=== PATIENT | female | born 1990 | race Caucasian/White ===

== ENCOUNTER 2021-07-30 10:18 | Emergency (ER) | payer BC ==
--- OUTSIDE RECORDS SUMMARY | 2021-07-30 10:21 | XMS REPORT | Continuity of Care Document ---
:1990 Author Organization [facility] t Address [address] [place] [address] Care Team Providers Name Role Phone Pcp, Does Not Have A Primary Care Physician Ramona Isaac Attending Clinician Unavailable Doctor Unassigned, Name Attending Clinician Unavailable Leandra Hanson MD Attending Clinician MARCY Attending Clinician Unavailable LEANDRA HANSON Attending Clinician Unavailable Ramona Isaac Admitting Clinician Unavailable Physician, Primary or Family Admitting Clinician Unavailabl e Payers Payer Name Policy Type Policy Number Effective Date Expiration Date S ource Problems Condition Condition Condition Status Onset Resolution Last Treating Co mments Source Name Details Category Date Date Treatment Clinician Date Subchorion Subchorion Disease Active U nivers ic ic 9-10 ity of hematoma hematoma 00:00: [place] in first in first 00 Medica l trimester, trimester, Br anch single or single or unspecifie unspecifie d fetus d fetus Allergies, Adverse Reactions, Alerts Allergy Allergy Status Severity Reaction(s) Onset Inactive Treating Comm ents Source Name Type Date Date Clinician No Known DA Active U [facility] Allergie 4-21 [facility] [place] Sulfa Propensi Active Rash Univers (Sulfona ty to 8-20 ity of mide adverse 00:00: [place] Antibiot reaction 00 Medica l ics) s Branch SULFA Drug Active High Rash Univers (SULFONA Class 8-20 ity of MIDE 00:00: [place] ANTIBIOT 00 Medical ICS) Branch NO KNOWN Drug Active Univers ALLERGIE Class ity of S [facility] Social History Social Habit Start Date Stop Date Quantity Comments Source ASSERTION 2020-11-06 University of 00:00:00 [facility] Exposure to Not sure University SARS-CoV-2 [facility] (event) Branch Alcohol intake 2021-01-08 2021-01-08 Current drinker Unive rsity of 00:00:00 00:00:00 of alcohol [facility] (finding) Branch Tobacco use and 2020-11-21 2020-11-21 Never used Universit y of exposure 00:00:00 00:00:00 [facility] Sex Ass[birth year] At [birth year] Universit y of 00:00:00 00:00:00 [facility] Smoking Status Start Date Stop Date Source Never smoker [facility] Medications Ordered Filled Start Stop Current Ordering Indication Dosage Frequency Signature Comments Components Source Medication Medication Date Date Medication? Clinician (SIG) Name Name ferrous Yes [id number] 325mg Take 1 Un ramin sulfate 1-11 tablet by ity of (IRON, 00:00: mouth 2 [place] FERROUS 00 (two) Medical SULFATE,) times Branch 325 mg (65 daily. mg iron) tablet ferrous Yes [id number] 325mg Take 1 Un ramin sulfate 1-11 tablet by ity of (IRON, 00:00: mouth 2 [place] FERROUS 00 (two) Medical SULFATE,) times Branch 325 mg (65 daily. mg iron) tablet ferrous 2020-04 Yes [id number] 325mg Take 1 Un ramin sulfate 0-12 tablet by ity of (IRON, 00:00: mouth 2 [place] FERROUS 00 (two) Medical SULFATE,) times Branch 325 mg (65 daily. mg iron) tablet docusate 2020-04 Yes [id number] 100mg Take 1 U nivers (COLACE) 0-12 capsule by ity o f 100 mg 00:00: mouth [place] capsule 00 daily. Medical Branch ferrous 2020-04 Yes [id number] 325mg Take 1 Un ramin sulfate 0-12 tablet by ity of (IRON, 00:00: mouth 2 [place] FERROUS 00 (two) Medical SULFATE,) times Branch 325 mg (65 daily. mg iron) tablet docusate 2020-04 Yes [id number] 100mg Take 1 U nivers (COLACE) 0-12 capsule by ity o f 100 mg 00:00: mouth [place] capsule 00 daily. Medical Branch ferrous 2020-04 Yes [id number] 325mg Take 1 Un ramin sulfate 0-12 tablet by ity of (IRON, 00:00: mouth 2 [place] FERROUS 00 (two) Medical SULFATE,) times Branch 325 mg (65 daily. mg iron) tablet docusate 2020-04 Yes [id number] 100mg Take 1 U nivers (COLACE) 0-12 capsule by ity o f 100 mg 00:00: mouth [place] capsule 00 daily. Medical Branch docusate 2020-04 Yes [id number] 100mg Take 1 U nivers (COLACE) 0-12 capsule by ity o f 100 mg 00:00: mouth [place] capsule 00 daily. Medical Branch docusate 2020-04 Yes [id number] 100mg Take 1 U nivers (COLACE) 0-12 capsule by ity o f 100 mg 00:00: mouth [place] capsule 00 daily. Medical Branch docusate 2020-04 Yes [id number] 100mg Take 1 U nivers (COLACE) 0-12 capsule by ity o f 100 mg 00:00: mouth [place] capsule 00 daily. Medical Branch ferrous 2020-04- No [id number] 325mg Take 1 U nivers sulfate 0-12 - tablet by ity of (IRON, 00:00: 00:00 mouth 2 [place] FERROUS 00 :00 (two) Medical SULFATE,) times Branch 325 mg (65 daily. mg iron) tablet PNV Yes Take by Univers no.95/bambi 8-20 mouth. ity of us 09:32: [place] fum/folic 24 Medical ac Branch ( ORAL) PNV 0 Yes Take by Univers no.95/bambi 8-20 mouth. ity of us 09:32: [place] fum/folic 24 Medical ac Branch ( ORAL) PNV 0 Yes Take by Univers no.95/bambi 8-20 mouth. ity of us 09:32: [place] fum/folic 24 Medical ac Branch ( ORAL) PNV 0 Yes Take by Univers no.95/bambi 8-20 mouth. ity of us 09:32: [place] fum/folic 24 Medical ac Branch ( ORAL) PNV 2020-0 Yes Take by Univers no.95/bambi 8-20 mouth. ity of us 09:32: [place] fum/folic 24 Medical ac Branch ( ORAL) PNV 2020-0 Yes Take by Univers no.95/bambi 8-20 mouth. ity of us 09:32: [place] fum/folic 24 Medical ac Branch ( ORAL) Immunizations Ordered Filled Immunization Date Status Comments [facility] Immunization Name Name SARS-COV-2 COVID-19 2020-07-02 Completed Unive rsity of MODERNA VACCINE 00:00:00 [place] Med ical Branch SARS-COV-2 COVID-19 2020-07-02 Completed Unive rsity of MODERNA VACCINE 00:00:00 [place] Med ical Branch SARS-COV-2 COVID-19 2020-07-02 Completed Unive rsity of MODERNA VACCINE 00:00:00 [place] Med ical Branch SARS-COV-2 COVID-19 2020-07-02 Completed Unive rsity of MODERNA VACCINE 00:00:00 [place] Med ical Branch SARS-COV-2 COVID-19 2020-07-02 Completed Unive rsity of MODERNA VACCINE 00:00:00 [place] Med ical Branch SARS-COV-2 COVID-19 2020-07-02 Completed Unive rsity of MODERNA VACCINE 00:00:00 [place] [facility] ical Branch SARS-COV-2 COVID-19 2020-06-04 Completed Unive rsity of MODERNA VACCINE 00:00:00 [place] Med ical Branch SARS-COV-2 COVID-19 2020-06-04 Completed Unive rsity of MODERNA VACCINE 00:00:00 [place] Med ical Branch SARS-COV-2 COVID-19 2020-06-04 Completed Unive rsity of MODERNA VACCINE 00:00:00 [place] Med ical Branch SARS-COV-2 COVID-19 2020-06-04 Completed Unive rsity of MODERNA VACCINE 00:00:00 [place] Med ical Branch SARS-COV-2 COVID-19 2020-06-04 Completed Unive rsity of MODERNA VACCINE 00:00:00 [facility] ical Branch SARS-COV-2 COVID-19 2020-06-04 Completed Unive rsity of MODERNA VACCINE 00:00:00 [facility] ical Branch Procedures Procedure Date / Time Performing Clinician Source Performed [id number] 2021-07-24 00:00:00 [facility] [id number] 2021-07-24 00:00:00 [facility] [id number] 2021-07-24 00:00:00 [facility] EXTERNAL PROVIDER 2021-04-22 06:01:00 Doctor Unassigned, No [facility] RECORDS Name Medical Branch AUTHORIZATION TO RELEASE 2021-02-25 06:01:00 [facility] Name [facility] SCANNED LAB RESULTS 2021-01-13 05:01:00 [facility] En[facility]ters Start End Encounter Admission Attending Care Care Encounter Source Date/Time Date/Time Type Type Clinicians Facility Department ID 2021-07-24 2021-07-26 Inpatient EM KEREN Isaac OBPP [id number] [facility] 01:08:00 17:01:00 Iris [id number] [facility] 2021-07-24 2021-07-24 Inpatient EM GE Isaac OBPP [id number] [facility] 01:08:00 01:08:00 Iris 97 [facility] 2021-07-23 2021-07-23 Emergency EM GE Isaac LANA [id number] [facility] 22:22:00 22:22:00 Iris [id number] [facility] [place] 2021-05-01 2021-05-01 Emergency EM GE Isaac LANA [id number] [facility] 12:09:00 14:33:00 Iris [id number] [facility] [place] 2021-05-01 2021-05-01 Emergency EM GE Isaac [facility] [id number] [facility] 12:09:00 14:33:00 Iris 37 [facility] 2021-04-22 2021-04-22 Orders Doctor THOMPSON [id number] [facility] 00:00:00 00:00:00 Only Unassigned, BLANCO [id number] ity of [facility] [id number] Ian as [phone] [address] 2021-04-14 2021-04-14 Refill Omar Hanson [facility] [id number] Univers 00:00:00 00:00:00 [place] [id number] i ty of [facility] [id number] [place] [phone] Ia dical NAL [address] [place] [address] 2021-04-13 2021-04-13 [facility] [id number] Univers 00:00:00 00:00:00 [place] [id number] i ty of [facility] [id number] [place] [phone] Ia dic[address] 2021-02-25 2021-02-25 Orders Doctor THOMPSON [id number] Univers 00:00:00 00:00:00 Only Unassigned, [place] [id number] ity of [place] [facility] [id number] Ian as [phone] [address] 2021-02-12 2021-02-12 Outpatient R MARCY [facility] [id number] Univers 16:00:00 16:00:[id number] [facility] 2021-02-12 2021-02-12 [facility] [id number] Univers 16:00:00 16:00:00 ROSALIA ity [facility] 2021-01-26 2021-01-26 Telephone Omar Hanson [facility] [id number] Univers 00:00:00 00:00:00 Cam [place] [id number] [place] [id number] [place] Profess[place] [phone] Ia dicwa nal [address] [place] [address] 2021-01-13 2021-01-13 Outpatient R [facility] [id number] Univers 08:30:00 08:30:00 [id number] ity [facility] 2021-01-13 2021-01-13 Outpatient R [facility] [id number] Univers 08:30:00 08:30:00 ity [facility] 2021-01-13 2021-01-13 Orders Doctor DONNA [id number] Univers 00:00:00 00:00:00 Only Unassigned, [place]AN[place] [id number] [facility] [id number] Ian as [phone] [address] 2021-01-08 2021-01-08 Outpatient R OMAR HANSON [facility] [id number] Univers 16:15:00 16:15:00 [id number] ity [facility] 2021-01-08 2021-01-08 Outpatient R HANSON [facility] [id number] Univers 16:15:00 16:15:00 ity [facility] 2020-12-12 2020-12-12 Outpatient R HANSON [facility] [id number] Univers 08:30:00 08:30:00 [id number] ity [facility] 2020-12-12 2020-12-12 Outpatient R MARGIE [facility] [id number] Univers 08:30:00 08:30:00 ity [facility] 2020-12-05 2020-12-05 Outpatient R MARGIE [facility] [id number] Univers 00:00:00 00:00:00 [id number] ity [facility] 2020-12-05 2020-12-05 Outpatient R MARGIE [facility] [id number] Univers 00:00:00 00:00:00 ity [facility] 2020-11-28 2020-11-28 Outpatient R [facility] [id number] Univers 11:30:00 11:30:00 [id number] ity [facility] 2020-11-28 2020-11-28 Outpatient R MARGIE [facility] [id number] Univers 11:30:00 11:30:00 ity [facility] 2020-11-25 2020-11-25 Outpatient R [facility] [id number] Univers 16:30:00 16:30:00 [id number] [facility] 2020-11-25 2020-11-25 Outpatient R OMAR HANSON [facility] [id number] Univers 16:30:00 16:30:00 [facility] 2020-11-24 2020-11-24 Outpatient R [facility] [id number] Univers 10:00:00 10:00:00 [id number] [facility] 2020-11-24 2020-11-24 Outpatient R OMAR HANSON [facility] [id number] Univers 10:00:00 10:00:00 [facility] 2020-11-21 2020-11-21 Outpatient R [facility] [id number] Univers 14:00:00 14:00:00 [id number] [facility] 2020-11-21 2020-11-21 Outpatient R OMAR HANSON [facility] [id number] Univers 09:00:00 09:00:00 [facility] Results Test Description Test Time Test Comments Results Result Comments Source AG HEPATITIS B SURFACE 2021-07-24 03:17:00 Test Item Value Reference Range Interpretation Comme nts AG HEPATITIS B SURFACE (test code = HBSAG) NONREACTIVE NONREACTIVE AB HEPATITIS C [id number] 03:17:00 Test Item Value Reference Range Interpretation Comments AB HEPATITIS C (test code = NONREACTIVE NONREACTIVE HCVAB) SIGNAL TO CUTOFF (test code = 0.08 <0.80 N CUTOFF) AB [id number] 03:17:00 Test Item Value Reference Range Interpretation Comments AB TREPONEMA (test code = TREPAB) NONREACTIVE NONREACTIVE AB HIV 1 03:17:00 Test Item Value Reference Range Interpretation Comments AB HIV 1 2 (test NONREACTIVE NONREACTIVE [id number] 4th Gen HIV Ag/Ab Combo Screen CBC W/AUTO [id number] 01:50:00 Test Item Value Reference Range Interpretation Comments WHITE BLOOD CELL (test code = WBC) 9.4 K/mm3 6.5-12.3 N RED BLOOD CELL (test code = RBC) 3.98 M/mm3 3.51-4.69 N HEMOGLOBIN (test code = HGB) 11.9 g/dL 10.1-13.8 N HEMATOCRIT (test code = HCT) 37.0 % 32.5-41.8 N MEAN CELL VOLUME (test code = MCV) 93.0 fL 84.6-96.6 N MEAN CELL HGB (test code = MCH) 29.9 pg 27.3-33.9 N MEAN CELL HGB CONCETRATION (test 32.2 gm/dL 32.0-34.2 N code = MCHC) RED CELL DISTRIBUTION WIDTH (test 14.1 % 12.2-16.3 N code = RDW) PLATELET COUNT (test code = PLT) 146 K/mm3 134-363 N IMMATURE PLATELET FRACTION (test 6.0 % 0.0-10.8 N code = IPF) MEAN PLATELET VOLUME (test code = 10.5 fL 9.2-12.7 N MPV) NEUTROPHIL % (test code = NT%) 84.8 % 57.9-77.3 H LYMPHOCYTE % (test code = LY%) 9.0 % 14.5-29.7 L MONOCYTE % (test code = MO%) 5.0 % 3.6-10.2 N EOSINOPHIL % (test code = EO%) 0.3 % 0.0-3.0 N BASOPHIL % (test code = BA%) 0.3 % 0.1-0.9 N NEUTROPHIL # (test code = NT#) 7.9 K/mm3 LYMPHOCYTE # (test code = LY#) 0.8 K/mm3 MONOCYTE # (test code = MO#) 0.5 K/mm3 EOSINOPHIL # (test code = EO#) 0.03 K/mm3 BASOPHIL # (test code = BA#) 0.0 K/mm3 RBC MORPHOLOGY REQUIRED (test code NORMAL NORMAL = RBCM) PLATELET MORPHOLOGY REQUIRED (test NORMAL NORMAL code = PLTMR) COVID 19 Asymptomatic IH [id number] 01:36:00 Test Item Value Reference Range Interpretation Comments COVID 19 NEGATIVE NEGATIVE This test has b een Asymptomatic IH AG authorize d only for the (test code = detection ofpro teins from COVNONPUIAG) SARS-CoV-2, not for any other viruses orpathogens. N egative results should be treated as presumptive andconfirmed wi th a molecular assay , if necessary for patientmanageme nt. Negative result s do not rule out COVID- 19 andshould not b e used as the sole basis for treatment orpat ient management deci sions, including infec tion controldecision s. Negative result s should be considered i n thecontext of a patient's recent exposure s, history and thepresence of clinical signs and symptoms consis tent withCOVID-19. T his test has not been FD A cleared or approved; th e test hasbeen authori verna by FDA under an Emerge ncy Use Authorization(E UA) for use by laborato mario certified under the CLIA thatmeet the re quirements to perform mode rate, high or waivedcomple xity tests. This sebastián t is authorized for use at thePoint of Car e (POC), i.e., in patien t care settingsoperati ng under a CLIA Certificat e of Waiver, Certifi mickey ofCompliance, o r Certificate of Accreditation. This test is only authori zed for the duration of thedeclaration that circumstances e xist justifying theauthorizatio n of emergency use o f in vitro diagnostic test sfor detection and/o r diagnosis of CO VID-19 under Dkicwzd46 4(b)(1) of the Act, 21 U.S .C. 360bbb-3(b)(1), unless theauthorizatio n is terminated or r evoked sooner.
[2021-07-30] MEDS ORDERED: NA CHLORIDE 0.9% 1,000 ML ONE (10:51)
[2021-07-30 11:07] LABS: Absolute Lymphocytes (CBC) 0.5 K/uL (0.7-4.9); Hematocrit 48.7 % (36.0-45.0); Lymphocytes % 12.5 % (15.3-44.8); MPV 7.8 fL (7.6-11.3); RBC Red Blood Cell Count 5.49 M/uL (3.86-4.86)
[2021-07-30 11:26] LABS: BUN Blood Urea Nitrogen 6 mg/dL (7-18); Bicarbonate 24 mmol/L (21-32); Glucose Level 70 mg/dL (74-106); HCG, Quantitative 231 mIU/mL (1-3); Potassium 3.3 mmol/L (3.5-5.1); Sodium Level 142 mmol/L (136-145)
--- NOTE | 2021-07-30 12:16 | RAD REPORT ---
EXAM DESCRIPTION: CT - Abdomen Pelvis W Contrast - 07/30/2021 12:00 pm CLINICAL HISTORY: Abdominal pain/right lower quadrant pain COMPARISON: none. TECHNIQUE: Computed axial tomography of the abdomen pelvis was obtained. 100 cc Isovue-300 was admin istered intravenously. Oral contrast was not requested which limits evaluation of bowel and appendix. All CT scans are performed using dose optimization technique as appropriate and may include automated exposure control or mA/KV adjustment according to patient size. FINDINGS: Periportal hepatic edema. This is a nonspecific finding but can be associated with inflamm ation. Mild fatty liver The spleen, pancreas, adrenals kidneys unremarkable The uterus is enlarged. There is no evidence of diverticulitis. Trace amount of ascites. Suboptimal evaluation of the appendix. IMPRESSION: uterus. Small amount of air within the vagina, cervix and uterus. This may be normal change or indicate infection and should be correlated clinically. Suboptimal evaluation of the appendix. If patient has clinical symptoms to suggest appendicitis then CT scan with oral contrast and opacification of the terminal ileum/cecum would be recommended
--- NOTE | 2021-07-30 12:26 | ER ---
Nurse's Notes [facility] Name: Kapil Moncada Age: 31 yrs Sex: Female : 1990 Arrival Date: 07/30/2021 Time: 10:19 Bed 13 Private MD: Diagnosis: Other specified abnormal uterine and vaginal bleeding Presentation: 07/30 10:27 Chief complaint: Patient states: Had vaginal delivery 07/24. Vaginal bleeding since, got ll1 more severe the past 24 hours. Feels weak and tired. No fever. Coronavirus screen: Vaccine status: Patient reports receiving the 2nd dose of the covid vaccine. Client denies travel out of the [place] in the last 14 days. At this time, the client does not indicate any symptoms associated with coronavirus-19. Ebola Screen: Patient denies travel to an Ebola-affected area in the 21 days before illness onset. Initial Sepsis Screen: Does the patient meet any 2 criteria? No. Patient's initial sepsis screen is negative. Does the patient have a suspected source of infection? Yes: Acute abdominal pain. Risk Assessment: Do you want to hurt yourself or someone else? Patient reports no desire to harm self or others. Onset of symptoms was July 29, 2021. 10:27 Method Of Arrival: Ambulatory ll1 10:27 Acuity: ABDULAZIZ 3 ll1 Triage Assessment: 10:29 General: Appears uncomfortable, Behavior is cooperative, appropriate for age. Pain: ll1 Complains of pain in head Pain currently is 3 out of 10 on a pain scale. Quality of pain is described as aching. Neuro: Reports headache weakness. : Reports vaginal bleeding that is heavy flow. 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 - Social history:: Smoking status: Patient denies any tobacco usage or history of. Patient/guardian denies using alcohol, street drugs, The patient lives with family. - Family history:: not pertinent. Screenin:34 Abuse screen: Denies threats or abuse. Denies injuries from another. Nutritional jg9 screening: No deficits noted. Tuberculosis screening: No symptoms or risk factors identified. Fall Risk None identified. Assessment: 10:34 : Reports vaginal bleeding that is heavy flow patient reports she gave on jg9 Tuesday and since her bleeding has started to increase and become more heavy since. 11:47 Reassessment: No changes from previously documented assessment. Patient and/or family jg9 updated on plan of care and expected duration. Pain level reassessed. Patient states symptoms have not improved. Vital Signs: 10:27 BP 128 / 82; Pulse 64; Resp 16; Temp 99.5; Pulse Ox 100% ; Weight 61.23 kg; Height 5 ll1 ft. 3 in. (160.02 cm); Pain 3/10; 11:00 BP 142 / 73; Pulse 60; Resp 14 S; Pulse Ox 100% ; jg9 11:30 BP 144 / 70; Pulse 58; Resp 14 S; Pulse Ox 99% on R/A; jg9 12:30 BP 145 / 76; Pulse 52; Resp 17 S; Pulse Ox 99% on R/A; jg9 10:27 Body Mass Index 23.91 (61.23 kg, 160.02 cm) ll1 ED Course: 10:19 Patient arrived in ED. rg4 10:21 Fabiola Lawson, ETHAN is Primary Nurse. jg9 10:23 Munir Garcia MD is Attending Physician. ma2 10:26 Arm band placed on Patient placed in an exam room, on a stretcher. ll1 10:29 Triage completed. ll1 10:33 Inserted saline lock: 20 gauge in right antecubital area, using aseptic technique. zm Blood collected. 10:35 Patient has correct armband on for positive identification. Bed in low position. Call jg9 light in reach. Side rails up X 1. 12:02 CT Abd/Pelvis - IV Contrast Only In Process Unspecified. EDMS 13:01 No provider procedures requiring assistance completed. jg9 13:01 IV discontinued. jg9 Administered Medications: 10:59 Drug: NS 0.9% 1000 ml Route: IV; Rate: 1 bolus; Site: right antecubital; jg9 11:48 Follow up: IV Status: Completed infusion; IV Intake: 1000ml jg9 Intake: 11:48 IV: 1000ml; Total: 1000ml. jg9 Outcome: 12:26 Discharge ordered by . alena 13:01 Discharged to home ambulatory. jg9 13:01 Condition: stable 13:01 Discharge instructions given to patient, Instructed on discharge instructions, follow up and referral plans. Demonstrated understanding of instructions, follow-up care, medications, Prescriptions given X 1. 13:03 Patient left the ED. jg9 Signatures: Dispatcher [employer] EDSD Mireya Burden rg4 Munir Garcia MD MD ma2 Vielka Valle RN RN ll1 Fabiola Lawson RN RN jg9 Kadi Caballero
--- NOTE | 2021-07-30 12:27 | EDPHYS ---
Physician Documentation [facility] Name: Kapil Moncada Age: 31 yrs Sex: Female : 1990 Arrival Date: 07/30/2021 Time: 10:19 Bed 13 Private MD: ED Physician Munir Garcia HPI: 07/30 12:21 This 31 yrs old Female presents to ER via Ambulatory with complaints of Vaginal ma2 Bleeding, Headache. 12:21 This 31 yrs old Female presents to ER via Ambulatory with complaints of Vaginal ma2 Bleeding, Headache. 12:21 Associated signs and symptoms: Pertinent negatives: constipation, cramping, diarrhea, ma2 dyspareunia, dysuria, fever, hematuria, nausea, urinary frequency, vaginal bleeding, vaginal discharge, vomiting. Severity of symptoms: At their worst the symptoms were mild, in the emergency department the symptoms are unchanged. 9-year-old female s/p normal spontaneous vaginal delivery yesterday, presents with body aches, she also described her vaginal bleeding has increased today, of note patient denies abdominal pain or suprapubic tenderness or pain. Denies vomiting diarrhea. Denies fever.. [employer]IST: 10:34 LMP N/A - Recent jg9 Historical: - Allergies: 10:26 No Known Allergies; ll1 - PMHx: 10:26 None; ll1 - PSHx: 10:26 skin graft R foot; ll1 - Immunization history:: Client reports receiving the 2nd dose of the Covid vaccine. - Social history:: Smoking status: Patient denies any tobacco usage or history of. Patient/guardian denies using alcohol, street drugs, The patient lives with family. - Family history:: not pertinent. ROS: 12:21 Negative for injury or acute deformity. ma2 12:21 Constitutional: Negative for fever, chills, and weight loss, Eyes: Negative for injury, pain, redness, and discharge, ENT: Negative for injury, pain, and discharge, Neck: Negative for injury, pain, and swelling, Cardiovascular: Negative for chest pain, palpitations, and edema, Respiratory: Negative for shortness of breath, cough, wheezing, and pleuritic chest pain, Abdomen/GI: Negative for abdominal pain, nausea, diarrhea, and constipation, Back: Negative for injury and pain, MS/Extremity: Negative for injury and deformity, Skin: Negative for injury, rash, and discoloration, Neuro: Negative for headache, weakness, numbness, tingling, and seizure, Psych: Negative for depression, anxiety, suicide ideation, homicidal ideation, and hallucinations, Allergy/Immunology: Negative for hives, rash, and allergies, Endocrine: Negative for neck swelling, polydipsia, polyuria, polyphagia, and marked weight changes. Exam: 12:21 Constitutional: This is a well developed, well nourished patient who is awake, alert, ma2 and in no acute distress. Head/Face: Normocephalic, atraumatic. Chest/axilla: Normal chest wall appearance and motion. Nontender with no deformity. No lesions are appreciated. Cardiovascular: Regular rate and rhythm with a normal S1 and S2. No gallops, murmurs, or rubs. Normal PMI, no JVD. No pulse deficits. Respiratory: Lungs have equal breath sounds bilaterally, clear to auscultation and percussion. No rales, rhonchi or wheezes noted. No increased work of breathing, no retractions or nasal flaring. Abdomen/GI: Soft, non-tender, with normal bowel sounds. No distension or tympany. No guarding or rebound. No evidence of tenderness throughout. Back: No spinal tenderness. No costovertebral tenderness. Full range of motion. Skin: Warm, dry with normal turgor. Normal color with no rashes, no lesions, and no evidence of cellulitis. MS/ Extremity: Pulses equal, no cyanosis. Neurovascular intact. Full, normal range of motion. Neuro: Awake and alert, GCS 15, oriented to person, place, time, and situation. Cranial nerves II-XII grossly intact. Motor strength 5/5 in all extremities. Sensory grossly intact. Cerebellar exam normal. Normal gait. Vital Signs: 10:27 BP 128 / 82; Pulse 64; Resp 16; Temp 99.5; Pulse Ox 100% ; Weight 61.23 kg; Height 5 ll1 ft. 3 in. (160.02 cm); Pain 3/10; 11:00 BP 142 / 73; Pulse 60; Resp 14 S; Pulse Ox 100% ; jg9 11:30 BP 144 / 70; Pulse 58; Resp 14 S; Pulse Ox 99% on R/A; jg9 12:30 BP 145 / 76; Pulse 52; Resp 17 S; Pulse Ox 99% on R/A; jg9 10:27 Body Mass Index 23.91 (61.23 kg, 160.02 cm) ll1 MDM: 12:21 Differential diagnosis: menorrhea, pelvic inflammatory disease, urinary tract ma2 infection, vaginosis, Lab work unremarkable, of note vital signs are all within normal limits. CT shows no emergent findings, or acute finding, normal changes s/p vaginal delivery, of note reported on CT. Endometriosis is a possibility and need to be correlated clinically. Of note patient clinically does not have signs or symptoms of endometriosis as she does not have abdominal pain or fever and does not have abdominal tenderness. White count is within normal limits patient has no fever. Data reviewed: vital signs, nurses notes. Counseling: I had a detailed discussion with the patient and/or guardian regarding: the historical points, exam findings, and any diagnostic results supporting the discharge/admit diagnosis, the presence of at least one elevated blood pressure reading (>120/80) during this emergency department visit, the need for outpatient follow up. Response to treatment: the patient's symptoms have markedly improved after treatment. 12:26 Patient medically screened. ak07/30 10:40 Order name: Abo/rh Typing; Complete Time: 12:20 [facility] 07/30 10:40 Order name: Basic Metabolic Panel; Complete Time: 12:20 ak07/30 10:40 Order name: CBC with Diff; Complete Time: 11:26 [facility] 07/30 10:40 Order name: Quantitative Hcg; Complete Time: 12:20 [facility] 07/30 10:40 Order name: CT Abd/Pelvis - IV Contrast Only; Complete Time: 12:20 ak07/30 12:40 Order name: Urine Dipstick-Ancillary EDNM 07/30 10:40 Order name: IV Saline Lock; Complete Time: 10:46 07/30 10:40 Order name: Labs collected and sent; Complete Time: 10:46 ak07/30 10:40 Order name: NPO; Complete Time: 10:47 07/30 10:40 Order name: Urine Dipstick-Ancillary (obtain specimen); Complete Time: 12:41 ma2 Administered Medications: 10:59 Drug: NS 0.9% 1000 ml Route: IV; Rate: 1 bolus; Site: right antecubital; jg9 11:48 Follow up: IV Status: Completed infusion; IV Intake: 1000ml jg9 Disposition Summary: 07/30/21 12:26 Discharge Ordered Location: Home ma2 Condition: Stable ma2 Diagnosis - Other specified abnormal uterine and vaginal bleeding ma2 Followup: ma2 - With: Private Physician - When: Today - Reason: If symptoms return, Continuance of care Discharge Instructions: - Discharge Summary Sheet ma2 - Menorrhagia, [id number] ma2 Forms: - Medication Reconciliation Form ma2 - Thank You Letter ma2 - Antibiotic Education ma2 - Prescription Opioid Use ma2 Prescriptions: - KETOROLAC - take 10 milligram by ORAL route 3 times per day; 300 milligram; Refills: 0, ma2 Product Selection Permitted Signatures: Dispatcher [employer] EDMunir Sanabria MD MD ma2 Vielka Valle RN RN ll1 Fabiola Lawson RN RN jg9 Corrections: (The following items were deleted from the chart) 10:46 10:40 Urine Dipstick-Ancillary ordered. ma2 jg9
[2021-07-30 12:40] LABS: Urine Blood 3+ (Negative); Urine Glucose Negative (Negative); Urine Protein 1+ (Negative)
[2021-07-30 13:09] VITALS: TEMP 99.5
[2021-07-30 13:11] VITALS: O2SAT 99
[2021-07-30 13:13] VITALS: BP 145/76
== END 2021-07-30 13:03 | disposition home or self-care (01) ==
LOC: ER 10:18
DX: N93.8 Other specified abnormal uterine and vaginal bleeding (principal)
CPT/HCPCS: 85025; 80048; 36415; 86900; 86901; 84702; 81003; 74177; 96360; 99284; Q9967; J7030